=== PATIENT | female | born 1940 | race Caucasian/White ===

== ENCOUNTER 2023-03-20 13:36 | Emergency (ER) | payer MEDICARE ==
[~2023-03-20] VITALS: Ht 154.9 cm; Wt 57.1 kg
[~2023-03-20 13:36] MED LIST: AMLODIPINE5 MG PO; AMOXICILLIN500 MG PO; PRAVASTATIN SOD20 MG PO
[2023-03-20] MEDS ORDERED: AMOX/K CLAV875 M1 PO ×2 (13:55→14:07)
[2023-03-20] MEDS ORDERED: ZPAK PO ×2 (13:55→14:07)
[2023-03-20 18:33] VITALS: BP 105/64
== END 2023-03-20 16:26 | disposition home or self-care (01) ==
LOC: ED 13:36
DX: S51.851A Open bite of right forearm, initial encounter (principal); I10 Essential (primary) hypertension; W55.01XA Bitten by cat, initial encounter; Y92.009 Unspecified place in unspecified non-institutional (private) residence as the place of occurrence of the external cause